=== PATIENT | female | born 2000 | race Caucasian/White ===

== ENCOUNTER 2021-08-26 14:07 | Emergency (ER) | payer BC, SELFPAY ==
[2021-08-26 16:00] VITALS: BP 140/87; PULSE 97; RESP 21; TEMP 37.3; O2SAT 100; BMI 19.6
[2021-08-26 16:24] LABS: UTC Strep Screen (Rapid) Negative (Negative)
[2021-08-26 16:25] LABS: UTC Influenza A Antigen Negative (Negative); UTC Influenza B Antigen Negative (Negative)
--- NOTE | 2021-08-26 16:25 | HMH.EDUTC ---
[facility] [place] Disposition Clinical Impression: Viral syndrome Disposition: Home, Self-Care Condition on Discharge: Good Instructions: DI for Viral Syndrome, DI for Fever (Symptom) -- Adult, Nausea and Vomiting-Adult Additional Instructions: *Monitor Temp, Over the counter Motrin or Tylenol as directed/as needed Tylenol every 4 hours and Motrin every 6 hours (as long as your family doctor has told you that you can take it) for fever or pain. and straight to ER if unable to lower temp less than 101.0 after medication given *Warm salt water gargles may help to soothe the throat *Throat Lozenges *Warm fluids like tea with honey may help to soothe the throat *Sleep elevated *Humidifier/Vaporizer Your throat swab was sent for culture. Those results are typically sent to your primary care. Be sure to follow up in 2-3 days with your family doctor/primary care physician if no improvement so they can review those result and treat if necessary. If you don?t have a primary care doctor, I recommend you get one but in the mean time, you will have to return to a walk in clinic Follow up IMMEDIATELY for new or worsening symptoms or no Noticeable improvement over the next 48-72 hours. 911 for difficulty breathing or swallowing You were tested for today for COVID19 your test result should be back in the next 24-48 hours, you may check for your results on the [facility] My Health Portal if you have trouble viewing your results or logging on you may call You was given a handout with instructions for Self Quarantine and Self isolation for while you wait on test results and what to do if they are positive If you are positive the Health Dept will be contacting you also Make sure to take your Vitamins Vit. C Vit D and Zinc if you can take them Prescriptions: Ondansetron [Zofran 4mg ODT] 4 mg PO TIDP PRN #20 tab PRN Reason: Vomiting Transmission Status: Received by [facility] #[id number] Referrals: Provider,Referral, [Primary Care Provider] - As needed Forms: Work/School Release Time of Disposition: 16:50 Medical Decision Making - Milind Inquiry Pt receiving controlled substance: No Milind was queried for this patient: No Vital Signs: 08/26/21 16:00 08/26/21 16:49 Temperature 99.1 F 99.1 F Temperature Source Oral Pulse Rate 97 H Pulse Rate [Right Brachial] 97 H Respiratory Rate 21 Blood Pressure 140/87 Blood Pressure [Right Arm] 140/87 Blood Pressure Mean [Right Arm] 104 Blood Pressure Source [Right Arm] Automatic Cuff Blood Pressure Position [Right Arm] Sitting 02 Sat by Pulse Oximetry 100 Oxygen Delivery Method Room Air - Lab Data Lab results reviewed: Yes: I reviewed the patient's lab results. Lab Results 08/26/21 16:23: Influenza Type A Ag Negative, Influenza Type B Ag Negative 08/26/21 16:23: Strep Scn Rapid Clinic Negative Orders (Tests/Meds): ED MEDICATIONS Discontinued Medications Generic Name Dose Route Start Last Admin Trade Name Freq PRN Reason Stop Dose Admin Ondansetron HCl 4 mg 08/26/21 16:38 08/26/21 16:48 Ondansetron 4mg Odt SL 08/26/21 16:39 4 mg ONCE ONE Administration ORDERS Category Date Time Status Covid-19 Nasal PCR ([facility]) Routine Lab 08/26/21 15:20 Received Strep Screen Confirmation Stat Micro 08/26/21 16:23 Received [facility] [place] HPI - General Stated complaint: chills, vomiting, runny nose, CRAWFORD Time Seen by Provider: 08/26/21 16:25 Mode of Arrival: Ambulatory Source of Information: Patient Limitations: No Limitations Description of Symptoms (Recalled from Triage Doc. by RN): PATIENT C/O LOW-GRADE FEVER, CHILLS, HEADACHE, RUNNY NOSE AND VOMITING X 2 DAYS HEENT Symptoms (Recalled from RN notes): Yes Resp Symptoms (Recalled from RN notes): No Skin Symptoms (Recalled from RN notes): No MS Symptoms (Recalled from RN notes): No Functional Status (Recalled from RN notes): WNL - History of Present Illness Provider Complaint: Patient states that she has not been
[2021-08-26 16:49] VITALS: BP 140/87; PULSE 97; RESP 21; TEMP 37.3; O2SAT 100
== END 2021-08-26 17:00 | disposition home or self-care (01) ==
PROVIDERS: Emergency Provider Nurse Practitioner
DX: U07.1 COVID-19 (principal)
CPT/HCPCS: 87804; 87880; 99203; C9803; G0463; U0003; U0005

== ENCOUNTER 2022-06-03 12:00 | Emergency (ER) | payer BC, SELFPAY ==
--- NOTE | 2022-06-03 12:23 | EXP.UTC ---
Discharge Plan Disposition Patient Disposition: Home, Self-Care Condition: Good Prescriptions Prescriptions: New amoxicillin [amoxicillin] 500 mg tablet 500 mg PO TID 10 Days Qty: 30 0RF pqubrkxjplxfohk-fvrswkmdg-[id number] [Bromfed DM] 2-30-10 mg/5 mL Syrup 5 ml PO Q6H PRN (Reason: Cough) Qty: 240 0RF No Action ondansetron 4 MG tablet,disintegrating 4 mg PO TIDP PRN (Reason: Vomiting) Qty: 20 0RF Referrals Follow up/Referrals: Provider,Referral, MD [Primary Care Provider] - See instructions Activity Restrictions/Add. Instructions Additional Instructions/Restrictions: Drink plenty of fluids. Take tylenol or ibuprofen for pain or fever. Take the medications as directed. Follow up with your regular doctor. GO TO THE ER FOR ANY WORSENING SYMPTOMS Throw your tooth brush away and get a new one. Clinical Impressions Clinical Impression: Strep throat Stand Alone Forms Stand Alone Forms: Work/School Release Instructions Patient Instructions: Strep Throat, DI for Strep Throat Discharge ED Provider: Magdy Molina [facility] General Stated complaint: sore throat, CRAWF[place] Time Seen by Provider: 06/03/22 12:23 History of Present Illness Provider Complaint: She c/o sore throat for the past 3 days. She has had body aches and she has felt bad also. Related Data Previous Rx's Medication Instructions Recorded ondansetron 4 mg disintegrating 4 mg PO TIDP PRN Vomiting #20 tabs 08/26/21 tablet amoxicillin 500 mg tablet 500 mg PO TID 10 days #30 tabs 06/03/22 cpgzpnspdakzlwo-nxpqluewbubmcik-JU 5 ml PO Q6H PRN Cough #240 mL 06/03/22 2 mg-30 mg-10 mg/5 mL oral syrup (Bromfed DM) Allergies Allergy/AdvReac Type Severity Reaction Status Date / Time No Known Allergies Allergy Verified 06/03/22 12:33 [facility] Social History Smoking Status: Never smoker alcohol intake: never current occupational status: employed Travel in the last 8 weeks: None ROS Obtained: Yes All systems reviewed & no additional complaints except as documented Constitutional Constitutional: Denies chills and Denies fever(s) Eyes Eyes: Denies eye discharge ENT Ears, Nose, Mouth, and Throat: Denies dizziness, Denies otalgia and Denies sore throat Cardiovascular Cardiovascular: Denies chest pain Respiratory Respiratory: Denies shortness of breath, Denies chest congestion, Denies cough, Denies stridor and Denies wheezing Gastrointestinal Gastrointestingal: Denies nausea or vomiting Musculoskeletal Musculoskeletal: Reports system reviewed and no additional complaints, except as documented and Denies arthralgias Integumentary/Breasts Skin/Breast: Denies rash Neurologic Neurologic: Denies dizziness and Denies paresthesias Allergic/Immunologic Allergic/Immunologic: Denies wheezing Physical Exam General General appearance: alert and in no apparent distress Head Head exam: atraumatic, normocephalic and normal inspection Eye Eye exam: Present normal appearance, PERRL and EOMI ENT ENT exam: Present mucous membranes moist and normal external ear exam Expanded ENT Exam TM/Canal exam: Bilateral TM: erythema and bulging Nose exam: Absent sinus tenderness Mouth exam: Present normal external inspection; Absent drooling Teeth exam: Present normal inspection Throat exam: Present tonsillar erythema, tonsillomegaly and tonsillar exudate Neck Neck exam: Present normal inspection, full ROM and trachea midline; Absent tenderness, meningismus or lymphadenopathy Chest Chest inspection: Present normal inspection and symmetric chest wall rise; Absent tenderness Respiratory Respiratory exam: Present normal lung sounds bilaterally; Absent respiratory distress, wheezes or stridor Cardiovascular Cardiovascular exam: Present regular rate and normal rhythm; Absent systolic murmur or diastolic murmur Abdominal Exam Abdominal exam: Present soft and normal bowel sounds; Absent diste
[2022-06-03 12:28] LABS: UTC Strep Screen (Rapid) Positive (Negative)
[2022-06-03 12:29] VITALS: BP 147/74; PULSE 74; RESP 16; TEMP 36.9; O2SAT 99; BMI 21.9
[2022-06-03 13:28] VITALS: BP 147/74; PULSE 74; RESP 16; TEMP 36.9
== END 2022-06-03 13:28 | disposition home or self-care (01) ==
PROVIDERS: Emergency Provider Nurse Practitioner Family
DX: J02.0 Streptococcal pharyngitis (principal)
CPT/HCPCS: 87880; 99212; G0463

== ENCOUNTER 2022-08-06 18:03 | Emergency (ER) | payer BC, SELFPAY ==
[2022-08-06 18:12] VITALS: BP 124/76; PULSE 96; RESP 17; TEMP 36.6; O2SAT 100; BMI 21.9
[2022-08-06 18:24] LABS: UTC Strep Screen (Rapid) Negative (Negative)
--- NOTE | 2022-08-06 18:24 | EXP.UTC ---
Discharge Plan Disposition Patient Disposition: Home, Self-Care Condition: Good Prescriptions Prescriptions: New azithromycin [Zithromax Z-Ayaan] 250 mg tablet See Rx Instructions .ROUTE .COMPLEX 5 Days Qty: 6 0RF Rx Instructions: For 250 mg dose pack: take 500 mg today (day 1), then 250 mg for 4 days (days 2-5) No Action amoxicillin [amoxicillin] 500 mg tablet 500 mg PO TID 10 Days Qty: 30 0RF qrguzwxxrtmqlqi-jvjfbbzci-WA [Bromfed DM] 2-30-10 mg/5 mL Syrup 5 ml PO Q6H PRN (Reason: Cough) Qty: 240 0RF ondansetron 4 MG tablet,disintegrating 4 mg PO TIDP PRN (Reason: Vomiting) Qty: 20 0RF Referrals Follow up/Referrals: Provider,Referral, MD [Primary Care Provider] - See instructions Activity Restrictions/Add. Instructions Additional Instructions/Restrictions: *Monitor Temp, Over the counter Motrin or Tylenol as directed/as needed Tylenol every 4 hours and Motrin every 6 hours (as long as your family doctor has told you that you can take it) for fever or pain. and straight to ER if unable to lower temp less than 101.0 after medication given *Warm salt water gargles may help to soothe the throat *Throat Lozenges? *Warm fluids like tea with honey may help to soothe the throat? *Sleep elevated *Humidifier/Vaporizer Your throat swab was sent for culture. Those results are typically sent to your primary care. Be sure to follow up in 2-3 days with your family doctor/primary care physician if no improvement so they can review those result and treat if necessary. If you don?t have a primary care doctor, I recommend you get one but in the mean time, you will have to return to a walk in clinic Follow up IMMEDIATELY for new or worsening symptoms or no Noticeable improvement over the next 48-72 hours. 911 for difficulty breathing or swallowing Clinical Impressions Clinical Impression: URI (upper respiratory infection) Instructions Patient Instructions: Sore Throat Discharge ED Provider: Carey Harkins [facility] General Stated complaint: sore throat Mode of Arrival: Ambulatory Source of Information: Patient Limitations: No Limitations Time Seen by Provider: 08/06/22 18:24 Description of Symptoms (Recalled from Triage Doc. by RN): SORE THROAT HEENT Symptoms (Recalled from RN notes): Yes Resp Symptoms (Recalled from RN notes): No Skin Symptoms (Recalled from RN notes): No MS Symptoms (Recalled from RN notes): No Functional Status (Recalled from RN notes): WNL History of Present Illness Provider Complaint: Patient states that she has been having sore throat for several days that has continued to get worse and hurts when she swallows States that feels like it does when she has strep throat Related Data Previous Rx's Medication Instructions Recorded ondansetron 4 mg disintegrating 4 mg PO TIDP PRN Vomiting #20 tabs 08/26/21 tablet amoxicillin 500 mg tablet 500 mg PO TID 10 days #30 tabs 06/03/22 phpccsflrhaosnb-xoeoczwctkkxzzz-UZ 5 ml PO Q6H PRN Cough #240 mL 06/03/22 2 mg-30 mg-10 mg/5 mL oral syrup (Bromfed DM) azithromycin 250 mg tablet See Rx Instructions PO .COMPLEX 5 08/06/22 (Zithromax Z-Ayaan) days #6 tabs Allergies Allergy/AdvReac Type Severity Reaction Status Date / Time No Known Allergies Allergy Verified 06/03/22 12:33 Worker's Comp Is this a Worker's Comp case?: No PFSH PFS Disclaimer: The information contained in this section may have been updated after the patient was seen, as this information can be updated by other users. Social History (Updated 06/03/22 @ 22:00 by Magdy Molina APRN) Smoking Status: Never smoker alcohol intake: never current occupational status: employed Travel in the last 8 weeks: None ROS Obtained: Yes All systems reviewed & no additional complaints except as documented and Yes Systems reviewed as appropriate & no additional complaints except as documented Constitutional Constitutional: Reports system re
[2022-08-06 18:31] VITALS: BP 124/76; PULSE 96; RESP 18; TEMP 36.6; O2SAT 100
== END 2022-08-06 18:33 | disposition home or self-care (01) ==
PROVIDERS: Emergency Provider Nurse Practitioner
DX: J06.9 Acute upper respiratory infection, unspecified (principal)
CPT/HCPCS: 87880; 99212; G0463

== ENCOUNTER 2023-10-14 11:44 | Emergency (ER) | payer BC, SELFPAY ==
[2023-10-14 11:45] VITALS: BP 136/86; PULSE 76; RESP 19; TEMP 36.8; O2SAT 99; BMI 28.5
--- NOTE | 2023-10-14 11:59 | ED_ITS ---
Discharge Plan Disposition Patient Disposition: Home, Self-Care Condition: Good Prescriptions Prescriptions: New azithromycin [Zithromax] 250 mg tablet 250 mg PO UD DOSE PK Qty: 6 0RF Rx Instructions: Take two (2) tablets today, then one (1) tablet days #2 thru #5 methylprednisolone 4 mg Tablets,Dose Pack 4 mg PO DIRECTED 6 Days Qty: 21 0RF Rx Instructions: Take 1 pack as directed for 6 days ghqisrfduoypizj-yayntpkii-CE [Bromfed DM] 2-30-10 mg/5 mL Syrup 5 ml PO Q6H PRN (Reason: Cough) Qty: 240 0RF ondansetron 4 mg Tablet,Disintegrating 4 mg PO Q8H PRN (Reason: Nausea) Qty: 9 0RF Referrals Follow up/Referrals: Provider,Referral, MD [Primary Care Provider] - See instructions Activity Restrictions/Add. Instructions Additional Instructions/Restrictions: Drink plenty of fluids. Take tylenol or ibuprofen for pain or fever. Take the medications as directed. Follow up with your regular doctor. GO TO THE ER FOR ANY WORSENING SYMPTOMS Clinical Impressions Clinical Impression: Viral syndrome, Sinusitis Stand Alone Forms Stand Alone Forms: Work/School Release Instructions Patient Instructions: DI for Sinusitis, DI for Viral Syndrome Discharge ED Provider: Magdy Molina [facility] General Stated complaint: headache, sore throat Time Seen by Provider: 10/14/23 11:59 History of Present Illness Provider Complaint: She states that for the past 2 days she has had headache, sore throat, malaise, body aches, and chills. Related Data Previous Rx's Medication Instructions Recorded azithromycin 250 mg tablet 250 mg PO UD DOSE PK #6 tabs 10/14/23 (Zithromax) eclnsbjbsvylojb-eloapaylmtpowkp-VD 5 ml PO Q6H PRN Cough #240 mL 10/14/23 2 mg-30 mg-10 mg/5 mL oral syrup (Bromfed DM) methylprednisolone 4 mg tablets in 4 mg PO DIRECTED 6 days #21 tabs 10/14/23 a dose pack ondansetron 4 mg disintegrating 4 mg PO Q8H PRN Nausea #9 tabs 10/14/23 tablet Allergies Allergy/AdvReac Type Severity Reaction Status Date / Time No Known Allergies Allergy Verified 10/14/23 12:14 PFSH PFSH Disclaimer: The information contained in this section may have been updated after the patient was seen, as this information can be updated by other users. Social History (Updated 06/03/22 @ 22:00 by Magdy Molina APRN) Smoking Status: Never smoker alcohol intake: never current occupational status: employed Travel in the last 8 weeks: None ROS Obtained: Yes All systems reviewed & no additional complaints except as documented Constitutional Constitutional: Reports chills and Reports fever(s) Eyes Eyes: Denies eye discharge ENT Ears, Nose, Mouth, and Throat: Reports as per HPI Cardiovascular Cardiovascular: Denies chest pain Respiratory Respiratory: Denies chest congestion and Reports cough Gastrointestinal Gastrointestingal: Reports nausea; Denies abdominal pain, constipation, cramping, diarrhea or vomiting Musculoskeletal Musculoskeletal: Denies arthralgias Integumentary/Breasts Skin/Breast: Denies rash Neurologic Neurologic: Denies paresthesias Physical Exam General General appearance: alert and in no apparent distress Eye Eye exam: Present normal appearance, PERRL and EOMI ENT ENT exam: Present mucous membranes moist and normal external ear exam Expanded ENT Exam External ear exam: Present normal external inspection TM/Canal exam: Bilateral TM: erythema and bulging Nose exam: Absent sinus tenderness Nasal speculum exam: Bilateral: normal Mouth exam: Present normal external inspection; Absent drooling Teeth exam: Present normal inspection Throat exam: Present tonsillar erythema and tonsillomegaly Neck Neck exam: Present normal inspection, full ROM and trachea midline; Absent tenderness, lymphadenopathy or thyromegaly Chest Chest inspection: Present normal inspection and symmetric chest wall rise; Absent tenderness or rash Respiratory Respiratory exam: Present normal lung sounds bilaterally; Absent respiratory distress, wheezes, stridor or accessory muscle use Cardiovascular Cardiovascular exam: Present regular rate, normal rhythm and normal heart sounds Abdominal Exam Abdominal exam: Present soft; Absent distention, tenderness, guarding, rebound or rigidity Extremities Exam Extremities exam: Present normal inspection, full ROM and normal capillary refill; Absent tenderness or calf tenderness Back Exam Back exam: Present normal inspection and full ROM; Absent tenderness Neurological Exam Neurological exam: Present alert and oriented X3 Psychiatric Psychiatric exam: Present normal affect and normal mood Skin Skin exam: Present warm, dry, intact and normal color Lymphatic Lymphatic Findings: no adenopathy Medical Decision Making Medical Records Medical records reviewed: No I reviewed the patient's medical records. Milind Inquiry Pt receiving controlled substance: No Lab Data Lab results reviewed: Yes I reviewed the patient's lab results.
[2023-10-14 12:21] LABS: UTC Strep Screen (Rapid) Negative (Negative)
[2023-10-14 12:22] LABS: UTC Influenza A Antigen Negative (Negative); UTC Influenza B Antigen Negative (Negative)
[2023-10-14 13:10] VITALS: BP 136/86; PULSE 76; RESP 19; TEMP 36.8; O2SAT 99
[2023-10-14 13:10] LABS: Influenza A, PCR Not Detected (NotDetected); Influenza B, PCR Not Detected (NotDetected)
[2023-10-14 13:47] LABS: Coronavirus 19, PCR Detected (NotDetected)
== END 2023-10-14 13:10 | disposition home or self-care (01) ==
PROVIDERS: Emergency Provider Nurse Practitioner Family
DX: U07.1 COVID-19 (principal); J01.90 Acute sinusitis, unspecified; R51.9 Headache, unspecified; R07.0 Pain in throat; R05.9 Cough, unspecified; R11.0 Nausea
CPT/HCPCS: 87636; 87804; 87880; 99212; 99214; G0463

== ENCOUNTER 2024-10-13 14:09 | Emergency (ER) | payer BC, SELFPAY ==
[2024-10-13 14:14] VITALS: BP 136/81; PULSE 75; RESP 18; TEMP 36.8; O2SAT 100; BMI 25.8
--- NOTE | 2024-10-13 14:40 | ED_ITS ---
<Statement entered by Ilene Saha DO - 10/13/24 16:53> I was consulted by the MOMO, and we discussed the complexity of the problems being addressed. I approved the treatment and management plan for this patient's care in the emergency department, thus performing a substantive portion of the medical decision making. Ilene Saha DO Discharge Plan Disposition Patient Disposition: Home, Self-Care Condition: Good Prescriptions Prescriptions: New ondansetron 4 mg tablet,disintegrating 4 mg PO DAILY 5 Days Qty: 5 0RF No Action azithromycin [Zithromax] 250 mg tablet 250 mg PO UD DOSE PK Qty: 6 0RF Rx Instructions: Take two (2) tablets today, then one (1) tablet days #2 thru #5 methylprednisolone 4 mg Tablets,Dose Pack 4 mg PO DIRECTED 6 Days Qty: 21 0RF Rx Instructions: Take 1 pack as directed for 6 days ugxrqmaanjjkocd-qmkjbkmma-CE [Bromfed DM] 2-30-10 mg/5 mL Syrup 5 ml PO Q6H PRN (Reason: Cough) Qty: 240 0RF ondansetron 4 mg Tablet,Disintegrating 4 mg PO Q8H PRN (Reason: Nausea) Qty: 9 0RF Referrals Follow up/Referrals: Sophie De Los Santos APRN [Primary Care Provider] - See instructions Activity Restrictions/Add. Instructions Additional Instructions/Restrictions: Rest. Increase your fluid intake. Take Zofran as directed. Follow-up with OB. Return to the ED for worsening of condition. Clinical Impressions Clinical Impression: Nausea Qualifiers: Weeks of gestation: unspecified Qualified Code(s): Z34.90 - Encounter for supervision of normal , unspecified, unspecified trimester Instructions Patient Instructions: DI for Diarrhea and Traveler's Diarrhea -- Adult, DI for Diarrhea and Traveler's Diarrhea -- Child, DI for Nausea -- Adult, DI for Nausea -- Child Print Language Print Language: Persian Discharge ED Provider: Ilene Saha General Adult HPI General Chief complaint: Nausea/Vomiting/Diarrhea Stated complaint: 10 wks antepartum, unable to keep anything down Time Seen by Provider: 10/13/24 14:20 Mode of Arrival: Ambulatory Source of Information: Patient Limitations: No Limitations Description of Symptoms (Recalled from ER Triage Doc. by RN): Pt presents with c/o vomiting since thursday night. Pt states she is 10 weeks . History of Present Illness HPI narrative: Patient is a 24-year-old female who presents to the ED with complaints of nausea and vomiting over the past several days, states today she is unable to keep anything down. Patient is approximately 10 weeks , has already been evaluated by OB. Patient denies any related issues. Related Data Previous Rx's ?Medication ?Instructions ?Recorded azithromycin 250 mg tablet 250 mg PO UD DOSE PK #6 tabs 10/14/23 (Zithromax) ghtpazblalqerqx-zqewfhijuxecwbh-FR 5 ml PO Q6H PRN Cough #240 mL 10/14/23 2 mg-30 mg-10 mg/5 mL oral syrup (Bromfed DM) methylprednisolone 4 mg tablets in 4 mg PO DIRECTED 6 days #21 tabs 10/14/23 a dose pack ondansetron 4 mg disintegrating 4 mg PO Q8H PRN Nausea #9 tabs 10/14/23 tablet ondansetron 4 mg disintegrating 4 mg PO DAILY 5 days #5 tabs 10/13/24 tablet Allergies Allergy/AdvReac Type Severity Reaction Status Date / Time No Known Allergies Allergy Verified 10/14/23 12:14 [facility] Disclaimer: The information contained in this section may have been updated after the patient was seen, as this information can be updated by other users. Social History (Updated 06/03/22 @ 22:00 by Magdy Molina APRN) Smoking Status: Never smoker alcohol intake: never current occupational status: employed Travel in the last 8 weeks: None Have you lived/traveled outside US in past 30 days?: No Contact w/someone who lives/traveled outside US past 30 days?: No Exposure to someone with infectious disease in past 14 days?: No Do you have a fever (greater than 100.4 F or 38 C)?: No Have you tested positive for COVID-19: No Exposed to someone with COVID-19 in past 14 days?: No Do you have a sore throat?: No Do you have a cough?: No Do you have any weakness?: No Do you have any diarrhea?: No Are you experiencing any unusual bleeding?: No Do you have any muscle aches/pain?: No Do you have any abdominal pain?: No Are you experiencing loss of taste or smell?: No ROS Obtained: Yes Systems reviewed as appropriate & no additional complaints except as documented Physical Exam General General appearance: alert and in no apparent distress Head Head exam: atraumatic and normocephalic Eye Eye exam: Present normal appearance and PERRL ENT ENT exam: Present normal exam Neck Neck exam: Present normal inspection Chest Chest inspection: Present normal inspection and symmetric chest wall rise; Absent tenderness Respiratory Respiratory exam: Present normal lung sounds bilaterally Cardiovascular Cardiovascular exam: Present regular rate Abdominal Exam Abdominal exam: Present soft and normal bowel sounds; Absent tenderness Extremities Exam Extremities exam: Present normal inspection and full ROM Back Exam Back exam: Present normal inspection and full ROM Neurological Exam Neurological exam: Present alert and oriented X3 Psychiatric Psychiatric exam: Present normal affect and normal mood Skin Skin exam: Present warm and dry Medical Decision Making Medical Records Screening: Per USPSTF and CDC recommendations, given the prevalence of disease in our region, it is our hospital?s policy to screen for HIV and viral Hepatitis for all patients aged 18 and over and those with ongoing risk factors. Milnid Inquiry Pt receiving controlled substance: No Milind was queried for this patient: No Vital Signs: 10/13/24 14:14 10/13/24 16:52 Temperature 98.3 F 98.2 F Temperature Source Oral Oral Pulse Rate 74 Pulse Rate [Right] 75 Respiratory Rate 18 16 Blood Pressure 136/78 Blood Pressure [Right Arm] 136/81 Blood Pressure Mean [Right Arm] 99 Blood Pressure Source Automatic Cuff Blood Pressure Position Sitting Blood Pressure Position [Right Arm] Sitting 02 Sat by Pulse Oximetry 100 Oxygen Delivery Method Room Air Room Air Lab Data Lab Results 10/13/24 14:50: SARS-CoV-2 (PCR) Not detected, Influenza A Untype (PCR) Not detected, Influenza Type B (PCR) Not detected 10/13/24 14:54: WBC 10.2, RBC 5.14, Hgb 13.5, Hct 41.0, MCV 79.8 L, MCH 26.3 L, MCHC 32.9, RDW 12.8, Plt Count 230, MPV 10.1, Neut % (Auto) 73.0, Lymph % (Auto) 18.2, [place] % (Auto) 7.9, Eos % (Auto) 0.4, Baso % (Auto) 0.1, Neut # (Auto) 7.4, Lymph # (Auto) 1.9, [place] # (Auto) 0.8, Eos # (Auto) 0.0, Baso # (Auto) 0.0, S odium 135 L, Potassium 3.6, Chloride 101, Carbon Dioxide 23, Anion Gap 14.6, BUN 11, Creatinine 0.50 L, Estimated Creat Clear 207, Estimated GFR 153, Est GFR ( Amer) 185, Glucose 87, Calcium 9.3, Total Bilirubin 0.8, AST 25, ALT 19, Alkaline Phosphatase 70, Total Protein 7.8, Albumin 4.5, Globulin 3.3 H, Albumin/Globulin Ratio 1.4, HCG, Quant [id number] H 10/13/24 15:05: Urine Color Yellow, Urine Appearance Clear, Urine pH 6.0, Ur Specific [place] >= 1.030, Urine Protein Trace, Urine Glucose (UA) Negative, Urine Ketones 3+, Urine Blood Trace-i, Urine Nitrate Negative, Urine Bilirubin 1+ A, Urine Urobilinogen 0.2, Ur Leukocyte Esterase Negative, Urine RBC None, Urine WBC Occasional, Ur Squamous Epith Cells Occasional, Urine Bacteria 1+, Urine Mucus 1+ 10/13/24 14:54 10/13/24 14:54 Orders (Tests/Meds): ED MEDICATIONS Discontinued Medications Generic Name Dose Route Start Last Admin Trade Name Freq PRN Reason Stop Dose Admin Doxylamine Succinate/Pyridoxine 1 tab 10/13/24 21:00 10/13/24 15:00 Doxylamine 10mg/Pyridoxine 10mg Tablet PO 11/12/24 20:59 1 tab BID SHERRIE Administration Sodium Chloride 500 mls @ 999 mls/hr 10/13/24 14:25 10/13/24 15:00 Sod Chlor 0.9% 1000ml Bag IV 10/13/24 14:55 999 mls/hr .Q31M ONE Administration ORDERS Category Date Time Status Beta HCG, Quant [HCG,Quantitative] Stat Lab 10/13/24 14:54 Completed CBC w/Auto Diff [Complete Blood Count Auto Diff] Stat Lab 10/13/24 14:54 Completed CMP [Comprehensive Metabolic Panel] Stat Lab 10/13/24 14:54 Completed Rapid PCR Covid and Flu A/B Stat Lab 10/13/24 14:50 Completed Urinalysis and Microscopic Stat Lab 10/13/24 15:05 Completed Medical Decision Narrative: In summary, patient is a 24-year-old female with no significant PMHx who presents to the ED with complaints of nausea and vomiting. Patient is currently 10 weeks , has already been evaluated by OB, G2, P1. Patient states she had morning sickness with her last . She states she is having difficulty keeping fluids down at this time. Denies any other complaints. Upon my initial evaluation, patient is alert, oriented and cooperative. She is hemodynamically stable. Her physical exam is unremarkable. Abdomen is soft and nontender. Denies fever, chills, headache, visual disturbances, posterior neck pain, chest pain, shortness of breath, back pain, dysuria. Differential diagnosis includes nausea and vomiting during , viral syndrome, UTI, pyelonephritis, STI, among others Initial workup will be conducted with hematologic labs, urinalysis. Initial inventions include IV fluids and Unisom and B6. CBC unremarkable for any leukocytosis, stable H&H. CMP remarkable for sodium of 135, no other actual abnormalities. hCG quant [id number]. Urinalysis unremarkable for infection. COVID and influenza negative. Upon repeat evaluation, pt is able to PO challenge without difficulty. She advises that her nausea has improved. She states she is currently out of Zofran, requesting prescription. Patient safe to be discharged home at this time. We discussed following back up with OB. We discussed return precautions to the ED. Patient verbalized understanding. She was hemodynamically stable and ambulatory with steady gait from the ED. Critical Care Critical Care Time Critical Care Time: No
[2024-10-13 14:53] LABS: Coronavirus 19, PCR Not Detected (NotDetected); Influenza A, PCR Not Detected (NotDetected); Influenza B, PCR Not Detected (NotDetected)
--- NOTE | 2024-10-13 14:57 | PC.NURSE ---
ROUNDED ON THE PT. THE PT VOICES THAT SHE DOES NOT NEED ANYTHING AT THIS TIME. CALL LIGHT IS WITHIN REACH OF THE PT.
[2024-10-13] MEDS: DOXYLAMINE 10MG/PYRIDOXINE 10MG TABLET 1 TAB PO (15:00)
[2024-10-13] MEDS: 0.9 % SODIUM CHLORIDE 1000ML 500 ML 999 ML IV (15:00)
[2024-10-13 15:02] LABS: Basophils % 0.1 % (0.1-2.0); Eosinophils % 0.4 % (0.1-12.0); Hemoglobin 13.5 g/dL (12.2-16.2); Lymphocytes # 1.9 K/mm3 (0.7-4.5); Lymphocytes % 18.2 % (10-50); Mean Corpuscular HGB Conc 32.9 g/dL (31.8-35.4); Mean Corpuscular Hemoglobin 26.3 pg (27.0-31.2); Mean Corpuscular Volume 79.8 fl (81-99); Mean Platelet Volume 10.1 fl (7.4-10.4); Monocytes # 0.8 K/mm3 (0.1-1.0); Monocytes % 7.9 % (1.7-9.3); Neutrophils # 7.4 K/mm3 (1.8-7.8); Platelet Count 230 K/mm3 (142-424); Red Blood Count 5.14 M/mm3 (4.20-5.40); Red Cell Distribution Width 12.8 % (11.5-17.5); White Blood Count 10.2 K/mm3 (4.8-10.8)
[2024-10-13 15:09] LABS: Microscopic, Urine URINE MICROSCOPIC (MICROSCOPIC)
[2024-10-13 15:13] LABS: Albumin Level 4.5 g/dl (3.5-5.0); Chloride 101 mmol/L (98-107); Potassium 3.6 mmoL/L (3.5-5.1); Sodium 135 mmol/L (136-145)
[2024-10-13 15:16] LABS: Alanine Aminotransferase 19 U/L (12-78); Albumin/Globulin Ratio 1.4 (1.1-1.8); Alkaline Phosphatase 70 U/L (38-126); Anion Gap 14.6 mEq/L (5-15); Aspartate Amino Transferase 25 U/L (14-36); Bilirubin,Total 0.8 mg/dl (0.2-1.3); Blood Urea Nitrogen 11 mg/dl (7-17); Carbon Dioxide 23 mmol/L (22.0-30.0); Creatinine Clearance Estimated 207 mL/min (50-200); Estimated Glomerular Filt Rate 153 ml/min (>60); GFR (African American) 185 ML/MIN (>60); Globulin 3.3 g/dL (1.3-3.2); Total Protein,Serum 7.8 g/dl (6.3-8.2)
[2024-10-13 15:17] LABS: Calcium 9.3 mg/dl (8.4-10.2); Glucose 87 mg/dl (74-100)
[2024-10-13 15:36] LABS: Appearance,Urine CLEAR (Clear); Blood, Urine TRACE-I (Negative); Color,Urine YELLOW (Yellow); Glucose,Urine (UA) Negative (Negative); Ketones,Urine 3+ (Negative); Leukocyte Esterase,Urine Negative (Negative); Nitrate,Urine Negative (Negative); Protein,Urine TRACE (Negative); Specific Gravity, Urine >= 1.030 (1.005-1.030); Urobilinogen,Urine 0.2 EU/dl (0.2)
[2024-10-13 16:03] LABS: HCG,Quantitative 172950 mIU/ml (0-5.42)
[2024-10-13 16:22] LABS: Bilirubin,Urine 1+ (Negative)
[2024-10-13 16:27] LABS: Bacteria,Urine 1+ /lpf; Squamous Epithelial Cell,Urine Occasional #/hpf (0-5); WBC,Urine Occasional #/hpf (0-3)
[2024-10-13 16:28] LABS: Mucus,Urine 1+ /lpf
--- NOTE | 2024-10-13 16:38 | PC.NURSE ---
ROUNDED ON THE PT. THE PT VOICES THAT SHE DOES NOT NEED ANYTHING AT THIS TIME. CALL LIGHT IS WITHIN REACH OF THE PT.
[2024-10-13 16:52] VITALS: BP 136/78; PULSE 74; RESP 16; TEMP 36.8; O2SAT 99
== END 2024-10-13 16:53 | disposition home or self-care (01) ==
PROVIDERS: Nurse Practitioner; Emergency Provider Emergency Medicine; PCP Nurse Practitioner Family
DX: O21.9 Vomiting of pregnancy, unspecified (principal); Z3A.10 10 weeks gestation of pregnancy
CPT/HCPCS: 80053; 81001; 84702; 85025; 87636; 96360; 99283; J7030

== ENCOUNTER 2024-10-24 13:15 | Emergency (ER) | payer BC, SELFPAY ==
[2024-10-24 13:16] VITALS: BP 134/78; PULSE 65; RESP 18; TEMP 36.9; O2SAT 99; BMI 25.8
--- NOTE | 2024-10-24 13:28 | HMH.EDGENADL ---
Discharge Plan Disposition Patient Disposition: Home, Self-Care Condition: Good Prescriptions Prescriptions: New metoclopramide HCl [Reglan] 10 mg tablet 10 mg PO Q4H PRN (Reason: nausea and vomiting) Qty: 30 0RF No Action azithromycin [Zithromax] 250 mg tablet 250 mg PO UD DOSE PK Qty: 6 0RF Rx Instructions: Take two (2) tablets today, then one (1) tablet days #2 thru #5 methylprednisolone 4 mg Tablets,Dose Pack 4 mg PO DIRECTED 6 Days Qty: 21 0RF Rx Instructions: Take 1 pack as directed for 6 days yacpudbrqsokqmy-ybwavoons-VZ [Bromfed DM] 2-30-10 mg/5 mL Syrup 5 ml PO Q6H PRN (Reason: Cough) Qty: 240 0RF ondansetron 4 mg Tablet,Disintegrating 4 mg PO Q8H PRN (Reason: Nausea) Qty: 9 0RF ondansetron 4 mg tablet,disintegrating 4 mg PO DAILY 5 Days Qty: 5 0RF Referrals Follow up/Referrals: Sophie De Los Santos APRN [Primary Care Provider] - See instructions Activity Restrictions/Add. Instructions Additional Instructions/Restrictions: I have called in a prescription for Reglan for you. You may take that with Unisom and B6 as your UNIT SUPERVISOR recommended. Need to follow-up with your UNIT SUPERVISOR within 40 hours. If you have any new or worsening signs or symptoms follow-up with your PCP return to the ER as needed. Clinical Impressions Clinical Impression: Hyperemesis gravidarum Instructions Patient Instructions: DI for Diarrhea and Traveler's Diarrhea -- Adult, DI for Diarrhea and Traveler's Diarrhea -- Child, DI for Nausea -- Adult, DI for Nausea -- Child Print Language Print Language: Argentine Discharge ED Provider: Speedy Bustillo General Adult HPI <MICH Pal - Last Filed: 10/24/24 20:41> General Chief complaint: Nausea/Vomiting/Diarrhea Stated complaint: dehydrated, dizziness, vomiting Time Seen by Provider: 10/24/24 13:28 Mode of Arrival: Ambulatory Source of Information: Patient Limitations: No Limitations Description of Symptoms (Recalled from ER Triage Doc. by RN): pt presents to ED c/o n/v. pt reports she is currently 11 weeks . care received at [facility]. pt states she has currently been taking Unisom and B6 with no relief. History of Present Illness HPI narrative: Patient presents for hyperemesis gravidarum. Patient is currently 11 weeks and has had daily morning sickness. Her UNIT SUPERVISOR has confirmed her and confirmed viable intrauterine but told her when she called today that she need to continue taking B6 and Unisom. Patient has tried that regimen and has been unsuccessful. This is the second pregnancies that she has had hyperemesis gravidarum. She denies any fever chills abdominal pain chest pain shortness of breath hemoptysis hematochezia melena diarrhea. Related Data Previous Rx's ?Medication ?Instructions ?Recorded azithromycin 250 mg tablet 250 mg PO UD DOSE PK #6 tabs 10/14/23 (Zithromax) blhzctvvkadsyio-ocpewczitkrncwj-PB 5 ml PO Q6H PRN Cough #240 mL 10/14/23 2 mg-30 mg-10 mg/5 mL oral syrup (Bromfed DM) methylprednisolone 4 mg tablets in 4 mg PO DIRECTED 6 days #21 tabs 10/14/23 a dose pack ondansetron 4 mg disintegrating 4 mg PO Q8H PRN Nausea #9 tabs 10/14/23 tablet ondansetron 4 mg disintegrating 4 mg PO DAILY 5 days #5 tabs 10/13/24 tablet metoclopramide HCl 10 mg tablet 10 mg PO Q4H PRN nausea and 10/24/24 (Reglan) vomiting #30 tabs Allergies Allergy/AdvReac Type Severity Reaction Status Date / Time No Known Allergies Allergy Verified 10/14/23 12:14 [facility] <MICH Pal - Last Filed: 10/24/24 20:41> [facility] Disclaimer: The information contained in this section may have been updated after the patient was seen, as this information can be updated by other users. Social History (Updated 06/03/22 @ 22:00 by Magdy Molina APRN) Smoking Status: Never smoker alcohol intake: never current occupational status: employed Travel in the last 8 weeks: None Have you lived/traveled outside US in past 30 days?: No Contact w/someone who lives/traveled outside US past 30 days?: No Exposure to someone with infectious disease in past 14 days?: No Do you have a fever (greater than 100.4 F or 38 C)?: No Have you tested positive for COVID-19: No Exposed to someone with COVID-19 in past 14 days?: No Do you have a sore throat?: No Do you have a cough?: No Do you have any weakness?: No Do you have any diarrhea?: No Are you experiencing any unusual bleeding?: No Do you have any muscle aches/pain?: No Do you have any abdominal pain?: No Are you experiencing loss of taste or smell?: No <MICH Pal - Last Filed: 10/24/24 20:41> ROS Obtained: Yes Systems reviewed as appropriate & no additional complaints except as documented Physical Exam <MICH Pal - Last Filed: 10/24/24 20:41> General General appearance: alert and in no apparent distress Respiratory Respiratory exam: Present normal lung sounds bilaterally Cardiovascular Cardiovascular exam: Present regular rate Neurological Exam Neurological exam: Present alert and oriented X3 Medical Decision Making <MICH Pal - Last Filed: 10/24/24 20:41> Medical Records Medical records reviewed: Yes I reviewed the patient's medical records. Screening: Per USPSTF and CDC recommendations, given the prevalence of disease in our region, it is our hospital?s policy to screen for HIV and viral Hepatitis for all patients aged 18 and over and those with ongoing risk factors. Milind Inquiry Pt receiving controlled substance: No Vital Signs: 10/24/24 13:16 10/24/24 15:04 10/24/24 16:08 Temperature 98.4 F 98.0 F Temperature Source Oral Pulse Rate 60 65 Pulse Rate [Left Radial] 65 Respiratory Rate 18 13 Blood Pressure 140/80 135/71 Blood Pressure [Right Arm] 134/78 Blood Pressure Mean [Right Arm] 96 Blood Pressure Source [Right Arm] Automatic Cuff Blood Pressure Position [Right Arm] Sitting 02 Sat by Pulse Oximetry 99 100 Oxygen Delivery Method Room Air Room Air Lab Data Lab results reviewed: Yes I reviewed the patient's lab results. Lab Results 10/24/24 13:30: WBC 10.5, RBC 5.20, Hgb 13.5, Hct 41.2, MCV 79.2 L, MCH 26.0 L, MCHC 32.8, RDW 12.7, Plt Count 252, MPV 10.2, Neut % (Auto) 79.8, Lymph % (Auto) 14.5, Cotton % (Auto) 4.8, Eos % (Auto) 0.3, Baso % (Auto) 0.2, Neut # (Auto) 8.4 H, Lymph # (Auto) 1.5, Cotton # (Auto) 0.5, Eos # (Auto) 0.0, Baso # (Auto) 0.0, Sodium 135 L, Potassium 3.7, Chloride 105, Carbon Dioxide 22, Anion Gap 11.7, BUN 7, Creatinine 0.50 L, Estimated Creat Clear 207, Estimated GFR 153, Est GFR ( Amer) 185, Glucose 90, Calcium 9.3, Total Bilirubin 0.5, AST 33, ALT 32, Alkaline Phosphatase 99, Total Protein 7.6, Albumin 4.4, Globulin 3.2, Albumin/Globulin Ratio 1.4, Urine Color Yellow, Urine Appearance Clear, Urine pH 6.0, Ur Specific [place] >= 1.030, Urine Protein Trace, Urine Glucose (UA) Negative, Urine Ketones 2+, Urine Blood Negative, Urine Nitrate Negative, Urine Bilirubin Negative, Urine Urobilinogen 0.2, Ur Leukocyte Esterase Trace, Urine RBC None, Urine WBC 3-5, Ur Squamous Epith Cells 3-5, Urine Bacteria None, HCV Ab DARSHANA w/Rflx PCR Qn Negative, HIV Ag/Ab Combo Qual Negative 10/24/24 13:30 10/24/24 13:30 Orders (Tests/Meds): ED MEDICATIONS Discontinued Medications Generic Name Dose Route Start Last Admin Trade Name Freq PRN Reason Stop Dose Admin Metoclopramide HCl 10 mg 10/24/24 14:17 10/24/24 14:26 Metoclopramide Hcl 10mg/2ml Vial IVP 10/24/24 14:18 10 mg ONCE ONE Administration Sodium Chloride 10 ml 10/24/24 13:22 Sodium Chloride 0.9% 10ml Flush Syringe IV 11/23/24 13:21 NEEDED PRN Maintain IV Site ORDERS Category Date Time Status Complete Blood Count Auto Diff Stat Lab 10/24/24 13:30 Completed Comprehensive Metabolic Panel Stat Lab 10/24/24 13:30 Completed HIV Combo Stat Lab 10/24/24 13:30 Completed Hepatitis C Ab Qual. W/ RFX Stat Lab 10/24/24 13:30 Completed Urinalysis and Microscopic Stat Lab 10/24/24 13:30 Completed Medical Decision Narrative: In summary patient is a 24-year-old female who presents to the emergency department for evaluation of nausea vomiting. Patient is hemodynamically stable upon arrival, febrile. Physical exam is remarkable for normal breath sounds normal abdominal sounds no abdominal tenderness no rebound no guarding no rigidity.. Differential diagnosis includes hyperemesis gravidarum versus electrolyte abnormality versus occult infection. Initial workup will be conducted with hematologic labs urinalysis. Initial interventions include Reglan. Initial workup reviewed by me and her hematologic labs are nonactionable electrolytes are normal urinalysis is bland. Upon repeat evaluation patient actually is able to tolerate oral intake after Reglan. Given this patient is appropriate for discharge with a prescription for Reglan along with recommendations to try to continue the B6 and Unisom and close follow-up with her UNIT SUPERVISOR. Patient verbalized understanding and agreement. <Speedy Bustillo MD - Last Filed: 10/25/24 12:39> Vital Signs: 10/24/24 13:16 10/24/24 15:04 10/24/24 16:08 Temperature 98.4 F 98.0 F Temperature Source Oral Pulse Rate 60 65 Pulse Rate [Left Radial] 65 Respiratory Rate 18 13 Blood Pressure 140/80 135/71 Blood Pressure [Right Arm] 134/78 Blood Pressure Mean [Right Arm] 96 Blood Pressure Source [Right Arm] Automatic Cuff Blood Pressure Position [Right Arm] Sitting 02 Sat by Pulse Oximetry 99 100 Oxygen Delivery Method Room Air Room Air Lab Data Lab Results 10/24/24 13:30: WBC 10.5, RBC 5.20, Hgb 13.5, Hct 41.2, MCV 79.2 L, MCH 26.0 L, MCHC 32.8, RDW 12.7, Plt Count 252, MPV 10.2, Neut % (Auto) 79.8, Lymph % (Auto) 14.5, Cotton % (Auto) 4.8, Eos % (Auto) 0.3, Baso % (Auto) 0.2, Neut # (Auto) 8.4 H, Lymph # (Auto) 1.5, Cotton # (Auto) 0.5, Eos # (Auto) 0.0, Baso # (Auto) 0.0, Sodium 135 L, Potassium 3.7, Chloride 105, Carbon Dioxide 22, Anion Gap 11.7, BUN 7, Creatinine 0.50 L, Estimated Creat Clear 207, Estimated GFR 153, Est GFR ( Amer) 185, Glucose 90, Calcium 9.3, Total Bilirubin 0.5, AST 33, ALT 32, Alkaline Phosphatase 99, Total Protein 7.6, Albumin 4.4, Globulin 3.2, Albumin/Globulin Ratio 1.4, Urine Color Yellow, Urine Appearance Clear, Urine pH 6.0, Ur Specific [place] >= 1.030, Urine Protein Trace, Urine Glucose (UA) Negative, Urine Ketones 2+, Urine Blood Negative, Urine Nitrate Negative, Urine Bilirubin Negative, Urine Urobilinogen 0.2, Ur Leukocyte Esterase Trace, Urine RBC None, Urine WBC 3-5, Ur Squamous Epith Cells 3-5, Urine Bacteria None, HCV Ab DARSHANA w/Rflx PCR Qn Negative, HIV Ag/Ab Combo Qual Negative Orders (Tests/Meds): ED MEDICATIONS Discontinued Medications Generic Name Dose Route Start Last Admin Trade Name Freq PRN Reason Stop Dose Admin Metoclopramide HCl 10 mg 10/24/24 14:17 10/24/24 14:26 Metoclopramide Hcl 10mg/2ml Vial IVP 10/24/24 14:18 10 mg ONCE ONE Administration Sodium Chloride 10 ml 10/24/24 13:22 Sodium Chloride 0.9% 10ml Flush Syringe IV 11/23/24 13:21 NEEDED PRN Maintain IV Site ORDERS Category Date Time Status Complete Blood Count Auto Diff Stat Lab 10/24/24 13:30 Completed Comprehensive Metabolic Panel Stat Lab 10/24/24 13:30 Completed HIV Combo Stat Lab 10/24/24 13:30 Completed Hepatitis C Ab Qual. W/ RFX Stat Lab 10/24/24 13:30 Completed Urinalysis and Microscopic Stat Lab 10/24/24 13:30 Completed Medical Decision Narrative: In summary patient is a 24-year-old female who presents to the emergency department for evaluation of nausea vomiting. Patient is hemodynamically stable upon arrival, febrile. Physical exam is remarkable for normal breath sounds normal abdominal sounds no abdominal tenderness no rebound no guarding no rigidity.. Differential diagnosis includes hyperemesis gravidarum versus electrolyte abnormality versus occult infection. Initial workup will be conducted with hematologic labs urinalysis. Initial interventions include Reglan. Initial workup reviewed by me and her hematologic labs are nonactionable electrolytes are normal urinalysis is bland. Upon repeat evaluation patient actually is able to tolerate oral intake after Reglan. Given this patient is appropriate for discharge with a prescription for Reglan along with recommendations to try to continue the B6 and Unisom and close follow-up with her UNIT SUPERVISOR. Patient verbalized understanding and agreement. I was consulted by the MOMO, and we discussed the complexity of the problems being addressed. I approve the treatment and management plan for this patient's care in the emergency department, thus performing a substantive portion of the medical decision making. Speedy Bustillo MD Critical Care <MICH Pal - Last Filed: 10/24/24 20:41> Critical Care Time Critical Care Time: No
[2024-10-24 13:37] LABS: Basophils % 0.2 % (0.1-2.0); Eosinophils % 0.3 % (0.1-12.0); Hematocrit 41.2 % (37.0-47.0); Hemoglobin 13.5 g/dL (12.2-16.2); Lymphocytes # 1.5 K/mm3 (0.7-4.5); Lymphocytes % 14.5 % (10-50); Mean Corpuscular HGB Conc 32.8 g/dL (31.8-35.4); Mean Corpuscular Volume 79.2 fl (81-99); Mean Platelet Volume 10.2 fl (7.4-10.4); Monocytes # 0.5 K/mm3 (0.1-1.0); Monocytes % 4.8 % (1.7-9.3); Neutrophils # 8.4 K/mm3 (1.8-7.8); Neutrophils % 79.8 % (37.0-80.0); Platelet Count 252 K/mm3 (142-424); Red Cell Distribution Width 12.7 % (11.5-17.5); White Blood Count 10.5 K/mm3 (4.8-10.8)
[2024-10-24 13:40] LABS: Microscopic, Urine URINE MICROSCOPIC (MICROSCOPIC)
[2024-10-24 13:43] LABS: Alanine Aminotransferase 32 U/L (12-78); Albumin Level 4.4 g/dl (3.5-5.0); Albumin/Globulin Ratio 1.4 (1.1-1.8); Alkaline Phosphatase 99 U/L (38-126); Anion Gap 11.7 mEq/L (5-15); Aspartate Amino Transferase 33 U/L (14-36); Bilirubin,Total 0.5 mg/dl (0.2-1.3); Blood Urea Nitrogen 7 mg/dl (7-17); Calcium 9.3 mg/dl (8.4-10.2); Carbon Dioxide 22 mmol/L (22.0-30.0); Chloride 105 mmol/L (98-107); Creatinine Clearance Estimated 207 mL/min (50-200); Estimated Glomerular Filt Rate 153 ml/min (>60); GFR (African American) 185 ML/MIN (>60); Globulin 3.2 g/dL (1.3-3.2); Glucose 90 mg/dl (74-100); Potassium 3.7 mmoL/L (3.5-5.1); Sodium 135 mmol/L (136-145); Total Protein,Serum 7.6 g/dl (6.3-8.2)
[2024-10-24 13:52] LABS: Appearance,Urine CLEAR (Clear); Bilirubin,Urine Negative (Negative); Blood, Urine Negative (Negative); Color,Urine YELLOW (Yellow); Glucose,Urine (UA) Negative (Negative); Ketones,Urine 2+ (Negative); Leukocyte Esterase,Urine TRACE (Negative); Nitrate,Urine Negative (Negative); Protein,Urine TRACE (Negative); Specific Gravity, Urine >= 1.030 (1.005-1.030); Urobilinogen,Urine 0.2 EU/dl (0.2)
[2024-10-24] MEDS: METOCLOPRAMIDE HCL 10MG/2ML VIAL 10 MG IVP (14:26)
--- NOTE | 2024-10-24 14:49 | PC.NURSE ---
pt requested some water; MICH Pierce okay'd it.
[2024-10-24 14:50] LABS: HIV Combo NEGATIVE (Negative)
[2024-10-24 14:58] LABS: Hepatitis C Ab Qual. W/ RFX NEGATIVE (Negative)
[2024-10-24 15:04] VITALS: BP 140/80; PULSE 60; O2SAT 100
[2024-10-24 16:08] VITALS: BP 135/71; PULSE 65; RESP 13; TEMP 36.7
== END 2024-10-24 16:08 | disposition home or self-care (01) ==
PROVIDERS: Emergency Provider Student in an Organized Health Care Education/Training Program; PCP Nurse Practitioner Family
DX: O21.0 Mild hyperemesis gravidarum (principal); R42 Dizziness and giddiness; Z3A.11 11 weeks gestation of pregnancy
CPT/HCPCS: 80053; 81001; 85025; 86803; 87389; 96374; 99283; J2765